=== PATIENT | male | born 1950 | race Caucasian/White ===

== ENCOUNTER 2017-12-02 16:40 | Inpatient (IN) | payer MEDICARE ==
[~2017-12-02] VITALS: Ht 175.3 cm; Wt 132.4 kg
[2017-12-02] MEDS ORDERED: LEVO50TA8 PO (17:28)
[2017-12-02] MEDS ORDERED: ACETAMINOPHEN 325 MG TABLET PO PRN (17:30)
[2017-12-02] MEDS ORDERED: MAGNESIUM HYDROXIDE 30 ML UDC PO PRN (17:30)
[2017-12-02] MEDS ORDERED: LORAZEPAM 0.5 MG TABLET PO PRN (17:30)
[2017-12-02] MEDS ORDERED: MAG HYDROX/AL HYDROX/SIMETH 30 ML UDC PO PRN (17:30)
[2017-12-02 17:35] VITALS: BP 131/73
--- NOTE | 2017-12-02 19:15 | NUR ---
GPS ADMISSION NOTE, RECEIVED PATIENT FROM [facility]. PATIENT ARRIVED ON THIS UNIT AT 1900 VIA STRETCHER WITH 2 EMT ESCORTS. PATIENT ADMITTED ON A 5150 HOLD FOR GD AND DTS. PER HOLD PATIENT IS UNABLE TO PROVIDE FOOD, CLOTHING, OR RESIDENTIAL AT THIS TIME. PATIENT IS UNABLE TO CONTRACT FOR SAFETY AT THIS TIME. THE 5150 WAS REVIEWED AND THE DOCUMENTATION IN THE 5150 HOLD APPEARS TO REFLECT THE PRESENTATION OF THE PATIENT. UPON FACE TO FACE ASSESSMENT PATIENT IS CURRENTLY LYING IN BED AWAKE, HAS NO S/S OR COMPLAINTS OF PAIN. PATIENT IS DISPLAYING NO S/S OF APPARENT DISTRESS. PATIENT BREATHING IS UNLABORED WITH EQUAL RISE AND FALL OF THE CHEST. PATIENT IS ALERT AND ORIENTATED X 3 ON ROOM AIR. PATIENT ASSISTED WITH TURING AND REPOSITIONING Q2HR AND PRN FOR COMFORT AND CIRCULATION. PATIENT HAS NO NEEDS AT THIS TIME. PATIENT IS NOTED TO BEING WITHDRAWN, DEPRESSED, DISHEVELED, DISORGANIZED, DELUSIONAL, COOPERATIVE, AND NEEDS REDIRECTION. PATIENT DENIES SUICIDE IDEATIONS AND HOMICIDAL IDEATIONS AT THIS TIME. PATIENT IS UNDER THE PSYCHIATRIC CARE OF DR. LOYNS AND THE MEDICAL CARE OF DR ALLEN. PATIENT BELONGINGS WERE INVENTORIED AND CHECKED FOR CONTRABAND. ALL CONTRABAND REMOVED AND STORED IN PATIENT HALLWAY LOCKER. PATIENT ADVANCED DIRECTIVES PREFERENCE, IMMUNIZATIONS QUESTIONER, NECESSARY PAPERWORK, AND SKIN ASSESSMENT COMPLETED. PATIENT ORIENTATED TO ROOM, FLOOR, AND STAFF WITH ALL QUESTIONS ANSWERED. PATIENT EDUCATED ON THE USE OF THE CALL CHRISTINA. PATIENT BED SIDE RAILS ARE UP X 2 FOR SAFETY. PATIENT BED IS LOCKED, LOW AND I WILL CONTINUE TO MONITOR THIS PATIENT Q 15 MIN WITH THE HELP OF STAFF TO MAINTAIN SAFETY.
--- NOTE | 2017-12-02 19:30 | NUR ---
GPS RN NOTE, RECEIVED PATIENT AWAKE AND IN BED, NO S/S OR COMPLAINTS OF PAIN AT THIS TIME. PATIENT IS DISPLAYING NO S/S OF APPARENT DISTRESS AT THIS TIME. PATIENT BREATHING IS UNLABORED WITH EQUAL RISE AND FALL CHEST. PATIENT IS ALERT AND ORIENTED X 3 ON ROOM AIR WITH A SPO2 98 %. PATIENT IS MED COMPLIANT, DISORGANIZED, COOPERATIVE, AND ANXIOUS AT TIMES. PATIENT DENIES SUICIDE IDEATIONS AND HOMICIDAL IDEATIONS AT THIS TIME. PATIENT EDUCATED ON THE USE OF THE CALL BEL. PATIENT BED SIDE RAILS UP X 2 FOR SAFETY, BED IS LOCKED AND LOW, WILL CONTINUE TO MONITOR AND MAINTAIN SAFETY WITH THE HELP OF SAFE.
[2017-12-02 20:00] VITALS: BP 155/81
[2017-12-03 07:24] LABS: ALBUMIN 3.6 g/dL (3.4-5.0); BILIRUBIN,TOTAL 0.5 mg/dL (0.2-1.0); CALCIUM, SERUM 9.5 mg/dL (8.5-10.1); CREATININE 1.1 mg/dL (0.6-1.3); TOTAL PROTEIN, SERUM 7.3 g/dL (6.4-8.2)
[2017-12-03 07:33] LABS: CHOLESTEROL 167 mg/dL (<200); HDL CHOLESTEROL 35 mg/dL (40-60); LDL 117 mg/dL (0-99); TRIGLYCERIDES 113 mg/dL (30-150)
[2017-12-03 08:00] VITALS: BP 139/70
[2017-12-03] MEDS: LEVOTHYROXINE SODIUM 50 MCG TABLET PO SCH (08:46)
--- NOTE | 2017-12-03 15:15 | NUR ---
SW contacted pts brother Bryon [phone] for collateral information and discharge planning. Per pts brother pts needs SNF placement.
[2017-12-03 16:00] VITALS: BP 160/74
--- NOTE | 2017-12-03 16:00 | NUR ---
INITIAL DISCHARGE PLAN: Per pts brother Bryon [phone] pt needs SNF placement. SW will help form a safe and proper discharge in collaboration with MD and pts brother.
[2017-12-03] MEDS: HALOPERIDOL 5 MG TABLET PO SCH ×2 (16:44→16:58)
--- NOTE | 2017-12-03 16:58 | NUR ---
GPS/RN PATIENT REFUSED HALDOL PO X 3, EXPLAINED RISKS AND BENEFITS, WILL CONTINUE TO ENCOURAGE TO COMPLY WITH MD REGIMEN.
[2017-12-03 19:52] VITALS: BP 134/83
[2017-12-04] MEDS: LEVOTHYROXINE SODIUM 50 MCG TABLET PO SCH (07:46)
[2017-12-04 08:12] VITALS: BP 128/86
[2017-12-04] MEDS: HALOPERIDOL 5 MG TABLET PO SCH ×2 (08:21→17:00)
--- NOTE | 2017-12-04 14:25 | NUR ---
[facility] Address: [address] [place] [address] fax: [phone] for review.
[2017-12-04 16:00] VITALS: BP 140/76
[2017-12-04 19:55] VITALS: BP 140/78
[2017-12-05 08:11] VITALS: BP 151/80
[2017-12-05] MEDS: HALOPERIDOL 5 MG TABLET PO SCH ×2 (09:00→17:00)
--- NOTE | 2017-12-05 09:00 | NUR ---
GPS/RN PATIENT REFUSED HALDOL PO 5 MG X 3, EXPLAINED RISKS AND BENEFITS, WILL CONTINUE TO ENCOURAGE TO COMPLY WITH MD REGIMEN. Addendum: 12/05/17 at 1703 by ASIM HDEZ RN HALDOL 3MG
[2017-12-05] MEDS: LEVOTHYROXINE SODIUM 75 MCG TABLET PO SCH (09:53)
--- NOTE | 2017-12-05 15:48 | NUR ---
Pts brother Bryon [phone] contacted SW to express concern for pts increased delusions and detachment from reality. SW informed pts brother that pt is refusing to take psych meds for the third day now. Pts brother asked SW to keep him informed of when RIESE hearing will be scheduled and would also like to be contacted by pts right advocate when hearing occurs.
[2017-12-05 16:00] VITALS: BP 170/99
--- NOTE | 2017-12-05 17:01 | NUR ---
GPS/RN PATIENT REFUSED HALDOL PO 5 MG X 3, EXPLAINED RISKS AND BENEFITS, WILL CONTINUE TO ENCOURAGE TO COMPLY WITH MD REGIMEN. Addendum: 12/05/17 at 1703 by ASIM HDEZ RN HALDOL 3 MG
[2017-12-05 20:00] VITALS: BP 138/91
[2017-12-06] MEDS: LEVOTHYROXINE SODIUM 75 MCG TABLET PO SCH ×2 (07:30→08:46)
[2017-12-06] MEDS ORDERED: LEVOTHYROXINE SODIUM 75 MCG TABLET PO SCH (07:30)
[2017-12-06 08:00] VITALS: BP 144/92
[2017-12-06] MEDS: HALOPERIDOL 5 MG TABLET PO SCH ×3 (08:46→17:00)
[2017-12-06 15:58] VITALS: BP 143/90
--- NOTE | 2017-12-06 18:21 | NUR ---
RN NOTES PATIENT REFUSED SCHEDULED MEDICATION. DR CASTRO, AND HOSPICE ENTRANCE ATTENDANT AWARE OF. PER DR MALCOLM FILE LAUREANO HEARING . CONTINUED MONITORING.
[2017-12-06 20:12] VITALS: BP 147/92
[2017-12-07] MEDS: LEVOTHYROXINE SODIUM 75 MCG TABLET PO SCH (07:30)
[2017-12-07 08:00] VITALS: BP 142/69
[2017-12-07] MEDS: HALOPERIDOL 5 MG TABLET PO SCH ×2 (09:00→17:00)
--- NOTE | 2017-12-07 09:00 | NUR ---
GPS/RN PT REFUSED AM MEDS
[2017-12-07 16:03] VITALS: BP 126/86
[2017-12-07 21:32] VITALS: BP 145/83
[2017-12-08 08:00] VITALS: BP 147/77
[2017-12-08] MEDS: LEVOTHYROXINE SODIUM 75 MCG TABLET PO SCH (08:20)
[2017-12-08] MEDS: HALOPERIDOL 5 MG TABLET PO SCH ×2 (08:22→17:00)
[2017-12-08 15:58] VITALS: BP 127/68
--- NOTE | 2017-12-08 19:30 | NUR ---
GPS RN NOTE, RECEIVED PATIENT AWAKE AND IN BED, NO S/S OR COMPLAINTS OF PAIN AT THIS TIME. PATIENT IS DISPLAYING NO S/S OF APPARENT DISTRESS AT THIS TIME. PATIENT BREATHING IS UNLABORED WITH EQUAL RISE AND FALL CHEST. PATIENT IS ALERT AND ORIENTED X 3 ON ROOM AIR WITH A SPO2 95%. PATIENT IS REFUSING PSYCHOTROPIC MEDICATIONS AND STATES," I DON'T NEED THEM ". MD AWARE PATIENT IS NOT TAKING MEDICATIONS. PATIENT IS DISORGANIZED, COOPERATIVE, AND ANXIOUS AT TIMES. PATIENT DENIES SUICIDE IDEATIONS AND HOMICIDAL IDEATIONS AT THIS TIME. PATIENT EDUCATED ON THE USE OF THE CALL BEL. PATIENT BED SIDE RAILS UP X 2 FOR SAFETY, BED IS LOCKED AND LOW, WILL CONTINUE TO MONITOR AND MAINTAIN SAFETY WITH THE HELP OF SAFE.
[2017-12-08 19:36] VITALS: BP 149/91
[2017-12-09 08:00] VITALS: BP 140/77
[2017-12-09] MEDS: HALOPERIDOL 5 MG TABLET PO SCH ×2 (09:00→16:27)
[2017-12-09] MEDS: LEVOTHYROXINE SODIUM 75 MCG TABLET PO SCH (09:37)
[2017-12-09 16:00] VITALS: BP 134/81
[2017-12-09] MEDS ORDERED: HALOPERIDOL LACTATE INJ 5 MG/ML VIAL IM PRN (16:00)
[2017-12-09 19:43] VITALS: BP 146/83
[2017-12-09] MEDS: TEMAZEPAM 7.5 MG CAPSULE PO PRN (21:47)
[2017-12-10 08:00] VITALS: BP 125/72
[2017-12-10] MEDS: HALOPERIDOL 5 MG TABLET PO SCH ×2 (09:52→16:07)
[2017-12-10] MEDS: LEVOTHYROXINE SODIUM 75 MCG TABLET PO SCH (09:52)
[2017-12-10 16:00] VITALS: BP 137/88
[2017-12-10 20:05] VITALS: BP 135/86
[2017-12-11 08:00] VITALS: BP 127/79
[2017-12-11] MEDS: LEVOTHYROXINE SODIUM 75 MCG TABLET PO SCH (08:45)
[2017-12-11] MEDS: HALOPERIDOL 5 MG TABLET PO SCH ×2 (08:45→17:09)
[2017-12-11 16:00] VITALS: BP 145/69
[2017-12-11 21:18] VITALS: BP 123/84
[2017-12-11] MEDS: TEMAZEPAM 7.5 MG CAPSULE PO PRN (22:28)
[2017-12-12] MEDS: HALOPERIDOL 5 MG TABLET PO SCH (08:53)
[2017-12-12] MEDS: LEVOTHYROXINE SODIUM 75 MCG TABLET PO SCH (08:53)
[2017-12-12 09:17] VITALS: BP 144/87
--- NOTE | 2017-12-12 12:29 | NUR ---
DISCHARGE NOTE: Pt was discharge at 12:30pm via [facility] ambulance trip #[id number] to [facility] Address: [address] [place] [address] . Pt brother Bryon [phone] has been notified and agrees with discharge plan. Pts mood was pleasant with congruent affect. Pt denied suicidal/homicidal ideations and denied visual/auditory hallucinations. Pt will be under the medical care of Service Desk Lead: Dr Fuller Address: [address] [address] [phone] and Psychiatrist: Dr. Staton Address: [address] [place] [address] . The multidisciplinary exitcare form was done, printed, signed, and given to the patient.
--- NOTE | 2017-12-12 12:30 | NUR ---
GPS/RN-NOTES PATIENT DISCHARGE TO [facility][1] TODAY . DR. LYONS GAVE T.O ORDERED EARLIER AT 1030 AM FOR DISCHARGE AND LUCRECIA ELISE MADE AWARE AND AGREES OF PATIENT DISCHARGE. ALSO DR. GARDNER COVERING FOR DR. LYONS TODAY WAS MADE AWARE OF PATIENT DISCHARGE. REPORT WAS GIVEN TO JACK (FACILITY ADMISSION NURSE). PATIENT DID NOT VERBALIZE SI/HI,DENIES VISUAL/AUDITORY HALLUCINATIONS AT THE TIME OF DISCHARGE.ALL DISCHARGE PAPERS WAS SIGN BY THE PATIENT . ADULT MINISTRIES DIRECTOR BY AMBULANCE VIA GURNEY WITH TWO STAFF ASSIST. PATIENT LEFT THE UNIT IN STABLE CONDITION WITH ALL HIS BELONGING AND WAS ENDORSE AND GIVEN TO AMBULANCE STAFF. PATIENT'S BROTHER ( KELVIN -[phone]) MADE AWARE OF THE DISCHARGE.
== END 2017-12-12 12:30 | DRG 885 ==
LOC: GPS 16:40
PROVIDERS: ADMIT Psychiatry & Neurology Psychiatry; ATTEND Psychiatry & Neurology Psychiatry
DX: F29 Unspecified psychosis not due to a substance or known physiological condition (principal); E44.0 Moderate protein-calorie malnutrition; F03.91 Unspecified dementia, unspecified severity, with behavioral disturbance; Z68.41 Body mass index [BMI] 40.0-44.9, adult; E03.9 Hypothyroidism, unspecified; E66.01 Morbid (severe) obesity due to excess calories; Z73.6 Limitation of activities due to disability; Z59.0 Homelessness; F22 Delusional disorders; E88.81 Metabolic syndrome and other insulin resistance; G47.30 Sleep apnea, unspecified
CPT/HCPCS: 36415; 80053-TC; 80061-TC; 84443-TC; 87081-TC